=== PATIENT | female | born 1950 | race African-American/Black ===

== ENCOUNTER 2021-11-07 11:17 | Emergency (ER) | payer MEDICARE ==
[2021-11-07 12:44] LABS: Bilirubin Neg (Negative); Blood, Urine 50 (Negative); Clarity Cloudy (Clear); Glucose, Urine (Dipstick) Normal (Negative); Ketone, Urine Negative (Negative); Leukocyte 500 (Negative); Nitrite Negative (Negative); Protein, Urine (Dipstick) 30 mg/dl (Neg-Trace); Urobilinogen Normal mg/dL (Less than 2)
[2021-11-07 13:13] LABS: WBC/HPF 21-50 HPF (0-3)
[2021-11-07 13:14] LABS: Bacteria/HPF 2+ HPF (None Seen)
== END 2021-11-07 13:31 | disposition home or self-care (01) ==
LOC: CSHERS 11:17
DX: N39.0 Urinary tract infection, site not specified (principal); M54.50 Low back pain, unspecified
CPT/HCPCS: 81003; 81015; 87086; 99283

== ENCOUNTER 2021-11-29 14:16 | Emergency (ER) | payer MEDICARE ==
[2021-11-29] MEDS ORDERED: Oxymetazoline HCl 0.05% ( 15 ML ) ONE (15:30)
[2021-11-29 15:50] LABS: #Eosinphils 0.2 10x3/uL (0.0-0.5); #Monocytes 0.8 10x3/uL (0.0-1.1); #Neutrophils 6.6 10x3/uL (1.5-8.4); %Basophils 0.3 % (0.0-2.0); %Eosinophils 2.2 % (0.0-6.0); %Lymphocytes 24.9 % (18.0-47.0); %Monocytes 8.1 % (0.0-10.0); %Neutrophils 64.1 % (40.0-75.0); Hemoglobin 12.2 g/dL (12.0-15.5); Mean Corpuscular HGB CONC 31.8 g/dL (32.0-36.0); Mean Corpuscular Hemoglobin 29.5 pg (27.0-33.0); Mean Corpuscular Volume 92.8 fl (81.6-98.3); Mean Platelet Volume 10.7 fl (7.4-10.4); Platelet Count 309 10x3/uL (150-450); RBC Distribution Width 14.9 % (11.5-14.5); Red Blood Cell (RBC) Count 4.14 10x6/uL (3.90-5.03); White Blood Cell (WBC) Count 10.2 10x3/uL (3.5-10.5)
[2021-11-29] MEDS ORDERED: Lisinopril 10 MG TAB ONE (15:53)
== END 2021-11-29 17:21 | disposition home or self-care (01) ==
LOC: CSHERS 14:16
DX: R04.0 Epistaxis (principal); I10 Essential (primary) hypertension
CPT/HCPCS: 85025; 93005

== ENCOUNTER 2021-11-30 12:49 | Emergency (ER) | payer MEDICARE ==
[2021-11-30 13:40] LABS: #Eosinphils 0.1 10x3/uL (0.0-0.5); #Monocytes 0.8 10x3/uL (0.0-1.1); #Neutrophils 6.5 10x3/uL (1.5-8.4); %Basophils 0.3 % (0.0-2.0); %Eosinophils 1.1 % (0.0-6.0); %Lymphocytes 19.2 % (18.0-47.0); %Monocytes 8.9 % (0.0-10.0); %Neutrophils 70.2 % (40.0-75.0); Mean Corpuscular HGB CONC 33.1 g/dL (32.0-36.0); Mean Corpuscular Hemoglobin 30.2 pg (27.0-33.0); Mean Corpuscular Volume 91.2 fl (81.6-98.3); Mean Platelet Volume 9.9 fl (7.4-10.4); Platelet Count 278 10x3/uL (150-450); RBC Distribution Width 14.6 % (11.5-14.5); Red Blood Cell (RBC) Count 3.98 10x6/uL (3.90-5.03); White Blood Cell (WBC) Count 9.3 10x3/uL (3.5-10.5)
[2021-11-30 14:02] LABS: ALT (SGPT) 18 U/L (8-55); AST (SGOT) 25 U/L (5-34); Albumin 4.6 g/dL (3.4-4.8); Alkaline Phosphatase 64 U/L (40-110); Anion Gap 14 mmol/L (10-20); BUN (Urea Nitrogen) 16 mg/dL (9.8-20.1); Calc. Creatinine Clearance 0 mL/min (70-130); Calcium 11.2 mg/dL (7.8-10.44); Carbon Dioxide 25 mmol/L (23-31); Chloride 102 mmol/L (98-107); Globulin 2.9 g/dL (2.4-3.5); Glucose 131 mg/dL (80-115); Potassium 3.1 mmol/L (3.5-5.1); Protein, Total 7.5 g/dL (5.8-8.1); Sodium 138 mmol/L (136-145)
[2021-11-30] MEDS ORDERED: Ondansetron ODT 4 MG TAB ONE (17:15)
== END 2021-11-30 17:48 | disposition home or self-care (01) ==
LOC: CSHERS 12:49
DX: R04.0 Epistaxis (principal); I10 Essential (primary) hypertension
CPT/HCPCS: 30901; 36415; 80053; 85025; 99283; Q0162

== ENCOUNTER 2021-12-07 23:30 | Emergency (ER) | payer MEDICARE ==
[2021-12-08 01:49] LABS: #Eosinphils 0.2 10x3/uL (0.0-0.5); #Monocytes 0.5 10x3/uL (0.0-1.1); %Basophils 0.1 % (0.0-2.0); %Eosinophils 2.5 % (0.0-6.0); %Lymphocytes 20.5 % (18.0-47.0); %Monocytes 5.9 % (0.0-10.0); %Neutrophils 70.8 % (40.0-75.0); Hemoglobin 9.6 g/dL (12.0-15.5); Mean Corpuscular HGB CONC 33.1 g/dL (32.0-36.0); Mean Corpuscular Hemoglobin 30.7 pg (27.0-33.0); Mean Corpuscular Volume 92.7 fl (81.6-98.3); Mean Platelet Volume 9.8 fl (7.4-10.4); Platelet Count 352 10x3/uL (150-450); RBC Distribution Width 14.2 % (11.5-14.5); Red Blood Cell (RBC) Count 3.13 10x6/uL (3.90-5.03); White Blood Cell (WBC) Count 8.4 10x3/uL (3.5-10.5)
[2021-12-08 01:54] LABS: INR-International Normal Ratio 0.9; PTT 24.5 sec (22.0-33.0); Prothrombin Time 10.3 sec (9.5-12.1)
[2021-12-08 01:56] LABS: Anion Gap 11 mmol/L (10-20); BUN (Urea Nitrogen) 13 mg/dL (9.8-20.1); Calc. Creatinine Clearance 0 mL/min (70-130); Calcium 10.2 mg/dL (7.8-10.44); Carbon Dioxide 28 mmol/L (23-31); Chloride 103 mmol/L (98-107); Glucose 130 mg/dL (80-115); Potassium 3.2 mmol/L (3.5-5.1); Sodium 139 mmol/L (136-145)
== END 2021-12-08 01:51 | disposition home or self-care (01) ==
LOC: CSHERS 23:30
DX: R04.0 Epistaxis (principal); I10 Essential (primary) hypertension; Z79.899 Other long term (current) drug therapy
CPT/HCPCS: 36415; 80048; 85025; 85610; 85730; 99283

== ENCOUNTER 2021-12-09 14:22 | Outpatient (CLI) | payer MEDICARE ==
[2021-12-09 16:24] LABS: Hemoglobin 9.4 g/dL (12.0-15.5); Mean Corpuscular HGB CONC 31.6 g/dL (32.0-36.0); Mean Corpuscular Hemoglobin 29.9 pg (27.0-33.0); Mean Corpuscular Volume 94.6 fl (81.6-98.3); Mean Platelet Volume 10.5 fl (7.4-10.4); Platelet Count 402 10x3/uL (150-450); RBC Distribution Width 14.3 % (11.5-14.5); Red Blood Cell (RBC) Count 3.14 10x6/uL (3.90-5.03); White Blood Cell (WBC) Count 9.7 10x3/uL (3.5-10.5)
[2021-12-09 16:28] LABS: Anion Gap 13 mmol/L (10-20); BUN (Urea Nitrogen) 6 mg/dL (9.8-20.1); Calc. Creatinine Clearance 0 mL/min (70-130); Calcium 10.5 mg/dL (7.8-10.44); Carbon Dioxide 26 mmol/L (23-31); Chloride 103 mmol/L (98-107); Glucose 96 mg/dL (80-115); Potassium 3.7 mmol/L (3.5-5.1); Sodium 138 mmol/L (136-145)
[2021-12-10 12:11] LABS: SARS-CoV-2 PCR by NAA Not Detected (NotDetected)
== END 2021-12-09 14:23 | disposition home or self-care (01) ==
LOC: CSHLAB 14:22
PROVIDERS: ATTEND Otolaryngology Plastic Surgery within the Head & Neck
DX: Z01.812 Encounter for preprocedural laboratory examination (principal); Z20.822 Contact with and (suspected) exposure to COVID-19; R04.0 Epistaxis
CPT/HCPCS: 80048; 85027; U0003; U0005

== ENCOUNTER 2021-12-12 11:34 | Day surgery (SDC) | payer MEDICARE ==
[2021-12-09 11:30] VITALS: BMI 30.2
[2021-12-12] MEDS ORDERED: Dexamethasone 20 MG/5 ML VIAL ONE (12:20)
[2021-12-12] MEDS ORDERED: Ondansetron PF 4 MG/2 ML Vial ONE (12:20)
[2021-12-12] MEDS ORDERED: Lidocaine 1% MPF 2 ML VIAL ONE (12:47)
[2021-12-12] MEDS ORDERED: Midazolam HCl 2 mg/2 ml Vial ONE (13:49)
[2021-12-12] MEDS ORDERED: Rocuronium Bromide 10 MG/ML (10ML VIAL) ONE (13:49)
[2021-12-12] MEDS ORDERED: Fentanyl 100 MCG/2 ML VIAL ONE ×2 (13:49→14:45)
[2021-12-12] MEDS ORDERED: PROPOFOL 20 ML ONE (13:49)
[2021-12-12] MEDS ORDERED: Lidocaine 1% PF 5 ML VIAL ONE (13:50)
[2021-12-12] MEDS ORDERED: Oxymetazoline HCl 0.05% ( 15 ML ) ONE (14:06)
[2021-12-12] MEDS ORDERED: Labetalol HCl 100 MG/20 ML VIAL ONE (14:45)
== END 2021-12-12 16:25 | disposition home or self-care (01) ==
LOC: CSHSDC 11:34
PROVIDERS: ATTEND Otolaryngology Plastic Surgery within the Head & Neck
PROC: 093K7ZZ Control Bleeding in Nasal Mucosa and Soft Tissue, Via Natural or Artificial Opening (ICD-10-PCS; principal; 2021-12-12)
DX: R04.0 Epistaxis (principal); Z79.899 Other long term (current) drug therapy; Z87.891 Personal history of nicotine dependence
CPT/HCPCS: J1100; J2250; J2405; J2704; J3010